=== PATIENT | female | born 1960 | race Caucasian/White ===

== ENCOUNTER 2016-12-14 13:38 | Day surgery (SDC) | payer OTHER ==
[~2016-12-14] VITALS: Ht 162.6 cm; Wt 85.3 kg
[~2016-12-14 13:38] MED LIST: LISINOPRIL20 MG PO; MELOXICAM7.5 MG PO; METFORMIN HCL500 MG PO; ONE DAILY FOR1 EAC3 PO; TRAMADOL HCL50 MG PO; VITAMIN B-6100 MG PO; VITAMIN B12 100MCG PO
== END 2016-12-14 15:14 | disposition home or self-care (01) ==
LOC: PAIN 13:38 → SDC 14:15 → PAIN 14:15
DX: M46.1 Sacroiliitis, not elsewhere classified (principal); M53.3 Sacrococcygeal disorders, not elsewhere classified; M47.816 Spondylosis without myelopathy or radiculopathy, lumbar region; E11.9 Type 2 diabetes mellitus without complications; I10 Essential (primary) hypertension; Z79.891 Long term (current) use of opiate analgesic; Z87.891 Personal history of nicotine dependence; Z82.49 Family history of ischemic heart disease and other diseases of the circulatory system; Z83.3 Family history of diabetes mellitus
CPT/HCPCS: J1030; S0020

== ENCOUNTER 2017-09-06 07:28 | Emergency (ER) | payer OTHER ==
[~2017-09-06] VITALS: Ht 162.6 cm; Wt 91.9 kg
[2017-09-06 08:07] LABS: BASOPHIL (%) 0.5 % (0-1); EOSINOPHIL (%) 1.2 % (0-5); EOSINOPHIL COUNT 0.1 K/uL (0-0.3); HEMATOCRIT 42.1 % (36.0-46.0); HEMOGLOBIN 14.6 G/DL (11.9-15.5); IMMATURE GRANULOCYTE (%) 0.7 % (0.0-0.7); LYMPHOCYTE (%) 37.6 % (15-42); LYMPHOCYTE COUNT 2.8 K/uL (1.0-2.8); MCH 29.6 PG (29.0-34.0); MCHC 34.7 G/DL (30.0-36.0); MCV 85.2 FL (83-99); MONOCYTE (%) 7.7 % (3-12); MONOCYTE COUNT 0.6 K/uL (0-0.8); NEUTROPHIL (%) 52.3 % (45-76); NEUTROPHIL COUNT 3.9 K/uL (1.8-6.4); PLATELET COUNT 223 K/uL (156-360); RBC DIS.WIDTH-CV 12.4 % (11.8-14.6); RED BLOOD COUNT 4.94 M/uL (3.80-5.20); WHITE BLOOD COUNT 7.4 K/uL (4.1-10.2)
[2017-09-06 08:18] LABS: CHLORIDE 101 mEq/L (99-109); POTASSIUM 4.9 mEq/L (3.7-5.4); SODIUM 134 mEq/L (136-147)
[2017-09-06 08:22] LABS: GLUCOSE 408 mg/dL (70-99)
[2017-09-06 08:24] LABS: CREATININE 1.1 mg/dL (0.6-1.3); GFR ESTIMATE (CALCULATED) 55 mL/min/; UREA NITROGEN (BUN) 20 mg/dL (9-23)
[2017-09-06] MEDS ORDERED: TYLENOL WITH C1 EACH PO (09:41)
[2017-09-06 10:09] VITALS: BP 152/82
== END 2017-09-06 10:13 | disposition home or self-care (01) ==
LOC: EME 07:28
PROVIDERS: Emergency Medicine
DX: S20.219A Contusion of unspecified front wall of thorax, initial encounter (principal); E11.65 Type 2 diabetes mellitus with hyperglycemia; W18.2XXA Fall in (into) shower or empty bathtub, initial encounter; Y92.002 Bathroom of unspecified non-institutional (private) residence as the place of occurrence of the external cause; I10 Essential (primary) hypertension; Z79.84 Long term (current) use of oral hypoglycemic drugs; Z87.891 Personal history of nicotine dependence; Z88.6 Allergy status to analgesic agent; Z88.8 Allergy status to other drugs, medicaments and biological substances
CPT/HCPCS: 71100; 74177; 80048; 82948; 85025; J3010; J7030